=== PATIENT | male | born 1965 | race Caucasian/White ===

== ENCOUNTER 2025-07-08 18:55 | Inpatient (IN) | payer OTHER ==
[~2025-07-08] VITALS: Ht 165.1 cm; Wt 69.4 kg
[2025-07-08] MEDS ORDERED: Z GUARD REMEDY 4 OZ OINT TP PRN (22:30)
[2025-07-08] MEDS ORDERED: ONDANSETRON HCL/PF 4 MG/2 ML VIAL IVP PRN (22:30)
[2025-07-08] MEDS ORDERED: ACETAMINOPHEN 650 MG/SUPP.RECT RC PRN (22:30)
[2025-07-08] MEDS: IV D5/ 0.9% NACL 1,000 ML IV PRN (23:20)
[2025-07-08] MEDS: CEFTRIAXONE 1 G in IV D5W 50 ML IV SCH (23:26)
[2025-07-08] MEDS: CEFTRIAXONE 1GM BAG (ER ONLY) 50 ML IV ONE (23:29)
[2025-07-08] MEDS: PANTOPRAZOLE 80 MG in IV NS 0.9% 500 ML IV PRN (23:37)
[2025-07-08] MEDS: PANTOPRAZOLE 40 MG VIAL ONE (23:41)
[2025-07-08] MEDS: OCTREOTIDE 1,250 MCG in IV NS 0.9% 247.5 ML IV SCH (23:52)
[2025-07-09] VITALS (50 sets, daily range): BP systolic 121–168; BP diastolic 57–86; TEMP 98.1–98.8; O2SAT 93–100
[2025-07-09] MEDS: OCTREOTIDE 500 MCG/ML VIAL ONE (00:11)
[2025-07-09] MEDS: BLOOD SUGAR DIAGNOSTIC 1 EACH STRIP IN SCH (01:02)
[2025-07-09] MEDS: Thiamine 100 MG in IV D5W 50 ML IV SCH (01:04)
[2025-07-09] MEDS: INSULIN REGULAR, HUMAN 100 UNIT/ML 3 ML VIAL SQ PRN (01:04)
[2025-07-09] MEDS: LORAZEPAM INJ 2 MG/ML VIAL IV PRN (01:10)
[2025-07-09 02:05] LABS: CALCIUM, SERUM 8.9 mg/dL (8.5-10.1); PHOSPHORUS 1.9 mg/dL (2.5-4.9); SODIUM SERUM 134.0 mmol/L (136-145)
[2025-07-09 02:08] LABS: RED CELL DISTRIBUTION WIDTH 17.1 % (11.5-15.0); WHITE BLOOD COUNT (AUTO) 4.0 K/uL (4.3-11.0)
[2025-07-09 02:18] LABS: RED BLOOD CELL COUNT(AUTO) 1.90 MIL/uL (4.5-6.0)
[2025-07-09 02:21] LABS: PLATELET COUNT (AUTO) 20 K/uL (150-450); UREA NITROGEN, BLOOD 104.0 mg/dL (7-18)
[2025-07-09 02:22] LABS: CREATININE 8.2 mg/dL (0.6-1.3)
[2025-07-09 03:13] LABS: EOSINOPHILS % (MANUAL) 4 % (0-4); LYMPHOCYTES % (MANUAL) 26 % (16-48); MONOCYTES % (MANUAL) 9 % (0-11.0); NEUTROPHILS % (MANUAL) 61 (42-76); PLATELET ESTIMATE DECREASED
[2025-07-09 04:05] LABS: LDL 37.0 mg/dL (0-99)
[2025-07-09] MEDS ORDERED: ANESTHESIA TRAY IN PYXIS 1 EA TRAY MC ONE (07:34)
[2025-07-09 07:46] LABS: WHITE BLOOD COUNT (AUTO) 4.1 K/uL (4.3-11.0)
[2025-07-09 07:52] LABS: PLATELET COUNT (AUTO) 99 K/uL (150-450); RED BLOOD CELL COUNT(AUTO) 2.30 MIL/uL (4.5-6.0); RED CELL DISTRIBUTION WIDTH 18.2 % (11.5-15.0)
[2025-07-09 07:55] LABS: CALCIUM, SERUM 8.6 mg/dL (8.5-10.1); SODIUM SERUM 136.0 mmol/L (136-145)
[2025-07-09 07:57] LABS: CREATININE 8.7 mg/dL (0.6-1.3); UREA NITROGEN, BLOOD 104.0 mg/dL (7-18)
[2025-07-09 07:59] LABS: INR 1.14 (0.91-1.10)
[2025-07-09] MEDS ORDERED: SIMETHICONE SUSP 40 MG/0.6 ML BOTTLE ONE (08:50)
[2025-07-09 09:36] LABS: LYMPHOCYTES % (MANUAL) 21 % (16-48); MONOCYTES % (MANUAL) 6 % (0-11.0); NEUTROPHILS % (MANUAL) 73 (42-76); PLATELET ESTIMATE DECREASED
[2025-07-09] MEDS: PANTOPRAZOLE 80 MG in IV NS 0.9% 500 ML IV SCH (10:16)
[2025-07-09 10:25] LABS: PLATELET COUNT (AUTO) 97 K/uL (150-450); RED BLOOD CELL COUNT(AUTO) 2.76 MIL/uL (4.5-6.0); RED CELL DISTRIBUTION WIDTH 16.9 % (11.5-15.0); WHITE BLOOD COUNT (AUTO) 4.6 K/uL (4.3-11.0)
[2025-07-10] VITALS (30 sets, daily range): BP systolic 99–186; BP diastolic 50–75; TEMP 97.6–98.7; O2SAT 95–100
[2025-07-10 04:45] LABS: PLATELET COUNT (AUTO) 82 K/uL (150-450); RED BLOOD CELL COUNT(AUTO) 2.39 MIL/uL (4.5-6.0); RED CELL DISTRIBUTION WIDTH 17.3 % (11.5-15.0); WHITE BLOOD COUNT (AUTO) 4.1 K/uL (4.3-11.0)
[2025-07-10 05:03] LABS: CALCIUM, SERUM 7.5 mg/dL (8.5-10.1); CREATININE 5.4 mg/dL (0.6-1.3); SODIUM SERUM 141.0 mmol/L (136-145); UREA NITROGEN, BLOOD 47.0 mg/dL (7-18)
[2025-07-10 05:11] LABS: BASOPHILS % (MANUAL) 0 % (0.0-2.0); EOSINOPHILS % (MANUAL) 4 % (0-4); LYMPHOCYTES % (MANUAL) 21 % (16-48); MONOCYTES % (MANUAL) 12 % (0-11.0); NEUTROPHILS % (MANUAL) 63 (42-76); PLATELET ESTIMATE DECREASED
[2025-07-10] MEDS: EPOETIN ALFA (10,000 UNIT) 10,000 UNIT/ML VIAL SQ SCH (15:12)
[2025-07-10] MEDS: DEXTROSE 50%-WATER 50 ML DISP.SYRIN IV PRN (17:44)
[2025-07-10] MEDS: THIAMINE HCL 100 MG TABLET PO SCH (21:08)
[2025-07-11] VITALS: BP 149/65; TEMP 98.6; O2SAT 98
[2025-07-11 04:00] VITALS: BP 157/62; TEMP 98.3; O2SAT 99
[2025-07-11 06:58] LABS: CALCIUM, SERUM 7.7 mg/dL (8.5-10.1); SODIUM SERUM 139.0 mmol/L (136-145); UREA NITROGEN, BLOOD 55.0 mg/dL (7-18)
[2025-07-11 07:02] LABS: PLATELET COUNT (AUTO) 81 K/uL (150-450); RED BLOOD CELL COUNT(AUTO) 2.69 MIL/uL (4.5-6.0); RED CELL DISTRIBUTION WIDTH 18.0 % (11.5-15.0); WHITE BLOOD COUNT (AUTO) 4.4 K/uL (4.3-11.0)
[2025-07-11 08:00] VITALS: BP 160/66; TEMP 98.8; O2SAT 100
[2025-07-11 08:12] LABS: CREATININE 7.5 mg/dL (0.6-1.3)
[2025-07-11 12:00] VITALS: BP 189/80; TEMP 98.2; O2SAT 100
[2025-07-11] MEDS ORDERED: PANT40TA2 PO (12:28)
[2025-07-11 13:30] VITALS: BP 190/80
[2025-07-11 13:49] LABS: LYMPHOCYTES % (MANUAL) 8 % (16-48); MONOCYTES % (MANUAL) 2 % (0-11.0); NEUTROPHILS % (MANUAL) 90 (42-76); PLATELET ESTIMATE DECREASED
== END 2025-07-11 17:21 | disposition home or self-care (01) | DRG 377 ==
LOC: ICU 21:15 → TELE1 07-10 19:45
PROVIDERS: ADMIT Nurse Practitioner Acute Care; ATTEND Nurse Practitioner Acute Care
PROC: 5A1D70Z Performance of Urinary Filtration, Intermittent, Less than 6 Hours Per Day (ICD-10-PCS; 2025-07-09)
PROC: 30233N1 Transfusion of Nonautologous Red Blood Cells into Peripheral Vein, Percutaneous Approach (ICD-10-PCS; 2025-07-09)
PROC: 0W3P8ZZ Control Bleeding in Gastrointestinal Tract, Via Natural or Artificial Opening Endoscopic (ICD-10-PCS; principal; 2025-07-09 08:00)
DX: K25.4 Chronic or unspecified gastric ulcer with hemorrhage (principal); N18.6 End stage renal disease; I12.0 Hypertensive chronic kidney disease with stage 5 chronic kidney disease or end stage renal disease; E87.1 Hypo-osmolality and hyponatremia; K74.60 Unspecified cirrhosis of liver; Z99.2 Dependence on renal dialysis; E11.22 Type 2 diabetes mellitus with diabetic chronic kidney disease; D62 Acute posthemorrhagic anemia; E78.5 Hyperlipidemia, unspecified; E11.51 Type 2 diabetes mellitus with diabetic peripheral angiopathy without gangrene
CPT/HCPCS: 36415; 80048-TC; 80061-TC; 82962-TC; 83735-TC; 84100-TC; 84443-TC; 85027-TC; 85610-TC; 85730-TC; 86317; 86850-TC; 87081-TC; 87340; 90935-TC; 93307-TC; A4223; G0378; J0330; J0696; J0885; J1815; J2060; J2354; J2470; J2704; J3411; J3490; J7030; J7040; J7042; J7050; J7060; P9016